=== PATIENT | male | born 1970 | race Caucasian/White ===

== ENCOUNTER 2018-05-28 05:57 | Emergency (ER) | payer OTHER ==
[~2018-05-28] VITALS: Ht 160 cm; Wt 54.9 kg
--- NOTE | 2018-05-28 06:10 | NUR ---
UPON TELLING PATIENT TO WAIT HE LOBBY HE EXPLAINS TO ME HE IS TIRED CAUSE HE HAS BEEN TRAVELING ALL NIGHT.
--- NOTE | 2018-05-28 07:11 | NUR ---
Per charge master coordinator Marci, call behavioral health and inform them this pt needs to be seen. Don't call telepsych.
[2018-05-28 07:15] LABS: CLARITY,URINE CLEAR (Clear); COLOR,URINE YELLOW (Yellow); GLUCOSE, URINE NEGATIVE (Neg); KETONES,URINE NEGATIVE (Neg); LEUKOCYTE ESTERASE ,URINE NEGATIVE (Neg); NITRITES, URINE NEGATIVE (Neg); OCCULT BLOOD,URINE NEGATIVE (Neg); PROTEIN,URINE NEGATIVE (Neg); UROBILINOGEN,URINE 0.2 E.U/dL (0.2-1.0)
[2018-05-28 07:16] LABS: UA COLLECTION TYPE CLN CATCH MIDSTREAM
--- NOTE | 2018-05-28 07:44 | NUR ---
PT's belongings were inventoried and documented. The 4 bags were placed in the the ambulance bay lockers and the belonging log was placed on PT's chart. The belonging log was reviewed by myself, the patient and Ana M MORGAN.
[2018-05-28 07:56] LABS: URINE AMPHETAMINE SCREEN POSITIVE (Neg); URINE BARBITUATE SCREEN NEGATIVE (Neg); URINE BENZODIAZEPINES SCREEN NEGATIVE (Neg); URINE CANNABINOID SCREEN POSITIVE (Neg); URINE COCAINE SCREEN NEGATIVE (Neg); URINE METHADONE SCREEN NEGATIVE (Neg); URINE OPIATE SCREEN NEGATIVE (Neg); URINE PHENCYCLIDINE SCREEN NEGATIVE (Neg)
[2018-05-28] MEDS ORDERED: ACET-2119 PO (08:03)
[2018-05-28] MEDS ORDERED: PANT40TA4 PO (08:03)
[2018-05-28] MEDS ORDERED: HYDR50TA65 PO (08:03)
[2018-05-28] MEDS ORDERED: VENL-190 PO (08:03)
[2018-05-28] MEDS ORDERED: PRAZ1CAP5 PO (08:03)
[2018-05-28] MEDS ORDERED: MIRT15TA PO (08:03)
[2018-05-28] MEDS ORDERED: PRAZ2CAP2 PO (08:03)
[2018-05-28] MEDS ORDERED: TRAZ-219 PO (08:03)
[2018-05-28] MEDS ORDERED: ACET500C5 PO (08:03)
[2018-05-28 08:09] LABS: BASOPHILS % (AUTO) 0.4 % (0-1); EOSINOPHILS % (AUTO) 0.5 % (0-6); HEMATOCRIT 41.2 % (42.0-52.0); HEMOGLOBIN 13.5 g/dl (14.0-17.9); LYMPHOCYTES # (AUTO) 1.4 X10'3 (1.1-4.8); LYMPHOCYTES % (AUTO) 15.1 % (21-51); MEAN CORPUSCULAR HEMOGLOBIN 27.3 PG (27.0-31.0); MEAN CORPUSCULAR HGB CONC 32.7 g/dL (33.0-36.5); MEAN CORPUSCULAR VOLUME 83.4 FL (78-98); MEAN PLATELET VOLUME 8.7 FL (7.4-10.4); MONOCYTES # (AUTO) 0.6 X10'3 (0-0.9); MONOCYTES % (AUTO) 6.9 % (2-12); NEUTROPHILS % (AUTO) 77.1 % (42-75); PLATELET COUNT 237 X10'3 (140-440); RED BLOOD COUNT 4.94 X10'6 (4.70-6.10); RED CELL DISTRIBUTION WIDTH 14.9 % (11.5-14.5)
[2018-05-28 08:21] LABS: ALANINE AMINOTRANSFERASE 26 U/L (12-78); ALBUMIN/GLOBULIN RATIO 1.1 (1.1-1.5); ALKALINE PHOSPHATASE 87 IU/L (46-116); ANION GAP 8 (8-16); ASPARTATE AMINO TRANSFERASE 21 U/L (10-37); BILIRUBIN,TOTAL 0.5 MG/DL (0.1-1.0); BLOOD UREA NITROGEN 9 MG/DL (7-18); BUN/CREATININE RATIO 11.7 (5.4-32.0); CALCIUM 9.2 MG/DL (8.5-10.1); CHLORIDE 103 MMOL/L (99-107); CREATININE 0.77 MG/DL (0.60-1.10); GLUCOSE 88 MG/DL (70-104); POTASSIUM 3.4 MMOL/L (3.5-5.1); SODIUM 140 MMOL/L (135-145); TOTAL CARBON DIOXIDE 29.1 MMOL/L (24-32); TOTAL PROTEIN 7.7 G/DL (6.4-8.2); eGFR > 90 ML/MIN
[2018-05-28 08:29] LABS: ETHANOL < 0.010 GM/DL (0.0-0.010)
--- NOTE | 2018-05-28 08:38 | NUR ---
Called behavioral health. Spoke with Justine and informed her that we have a pt that needs to be seen. She stated she will let MD know when they arrive.
--- NOTE | 2018-05-28 10:06 | NUR ---
Pt sitting up in bed. Calm and cooperative.
--- NOTE | 2018-05-28 10:49 | NUR ---
Report called to [facility]. Pt to overflow.
[2018-05-28] MEDS ORDERED: non-formulary drug (Hydroxyzine HCl 1 TAB) PO PRN (10:55)
--- NOTE | 2018-05-28 11:10 | NUR ---
RN spoke to patient at bedside. Patient states he is here because he is suicidal. Patient states he came from [place] on the bus and is heading to [place] where his brother lives. Patient states he only had enough money to get to [place]. Patient states he is having suicidal thoughts. RN asked patient about a plan and he says "well, I usually cut my self but I would probably jump of a bridge." Patient states he doesn't have any money for a bus ticket. RN asked if his brother could buy him a bus ticket to [place]. Patient states no, he doesn't have any money either. (Patient told [facility], that his brother doesn't know he's coming and doesn't have a number or address for him). Patient states he smokes 3 packs a day. No distress observed. Continue to monitor.
[2018-05-28] MEDS ORDERED: acetaminophen 325mg tablet PO SCH (12:00)
[2018-05-28] MEDS ORDERED: nicotine 21mg patch - 24 hr TD SCH (12:55)
[2018-05-28] MEDS ORDERED: NICOTINE POLACRILEX 4 MG LOZENGE BC PRN ×2 (12:55→13:15)
[2018-05-28] MEDS ORDERED: acetaminophen 325mg tablet PO PRN (13:00)
[2018-05-28] MEDS ORDERED: NICOTINE POLACRILEX 2 MG LOZENGE MM PRN (13:16)
--- NOTE | 2018-05-28 13:20 | NUR ---
Patient eating lunch. No distress observed. Continue to monitor.
[2018-05-28] MEDS: NICOTINE POLACRILEX 4 MG LOZENGE BC PRN (15:40)
--- NOTE | 2018-05-28 15:40 | NUR ---
Patient coloring to pass the time. No distress observed. Continue to monitor.
--- NOTE | 2018-05-28 17:30 | NUR ---
Patient in the BR cleaning up. Continue to monitor.
--- NOTE | 2018-05-28 19:38 | NUR ---
Patient ambulatory to BR, steady gait. Patient appears a little anxious. Continue to monitor.
[2018-05-28] MEDS ORDERED: quetiapine 100mg tablet PO PRN (19:45)
--- NOTE | 2018-05-28 20:30 | NUR ---
Patient wants meds later. Patient is slightly agitated. Continue to monitor.
[2018-05-28] MEDS: quetiapine 100mg tablet PO SCH (21:00)
[2018-05-28] MEDS: mirtazapine 15mg tablet PO SCH (21:00)
[2018-05-28] MEDS ORDERED: non-formulary drug (Trazodone HCl 1 TAB) PO SCH (21:00)
[2018-05-28] MEDS: traZODone 50mg tablet PO SCH (21:00)
[2018-05-28] MEDS ORDERED: non-formulary drug (Prazosin Hcl 2 MG) PO SCH (21:00)
[2018-05-28] MEDS: prazosin 1mg capsule PO SCH (23:04)
[2018-05-28] MEDS ORDERED: diphenhydrAMINE 50 mg/ml inj IM ONE (23:15)
[2018-05-28] MEDS ORDERED: LORazepam 2 mg/ml vial IM ONE (23:15)
[2018-05-28] MEDS ORDERED: ziprasidone IM 20mg inj **IM only IM ONE (23:15)
--- NOTE | 2018-05-28 23:41 | NUR ---
RN offered patient medication. Patient upset and says he can't take medication because he used meth this morning. RN explained to patient that the medications will help him sleep. Patient finally took Prazosin. Patient starts cussing and stating "this is bullshit! I'm leaving and I'm going to smoke a cigarette!" Patient pushes his bedside table away in anger. CATHY Negrete called for security to stand by while CATHY Bee spoke with Dr Barker to get medication for stand by in case patient escalates. Patient stands up and starts posturing and security held patient while RN gave him medication. Patient sitting at the edge of his bed. Continue to monitor.
[2018-05-29] MEDS: NICOTINE POLACRILEX 4 MG LOZENGE BC PRN ×4 (00:03→16:46)
--- NOTE | 2018-05-29 00:32 | NUR ---
Patient is laying on his left side in bed. Patient is not asleep as he is adjusting himself in bed. Continue to monitor.
--- NOTE | 2018-05-29 02:55 | NUR ---
Patient on right side. Patient had a couple of coughing episodes with clear sputum. RN examined pt's skin and breathing. No signs of allergic reaction observed. Patient's breathing is equal bilaterrally. No SOB observed. Continue to monitor.
--- NOTE | 2018-05-29 05:12 | NUR ---
Pt continues to sleep on right side. Patient still having a couple of coughing episodes. Restful for the last 30 minutes. Continue to monitor.
--- NOTE | 2018-05-29 06:42 | NUR ---
Patient sleeping supine with occasional cough, pt currently resting with respirations even and unlabored, no signs of distress. will continue to monitor.
--- NOTE | 2018-05-29 08:00 | NUR ---
Patient sleeping supine, mouth open and snoring, breathing and respirations are unlabored and even, will continue to monitor.
[2018-05-29] MEDS: venlafaxine XR 75mg capsule (Q24H) PO SCH (08:54)
[2018-05-29] MEDS: prazosin 1mg capsule PO SCH ×2 (08:54→21:00)
[2018-05-29] MEDS: pantoprazole 40mg Tablet.DR PO SCH (08:54)
--- NOTE | 2018-05-29 09:01 | NUR ---
Patient awake, eating breakfast, asks for warm blanket. no signs of distress at this time.
--- NOTE | 2018-05-29 09:20 | NUR ---
Patient requesting nicotine lozenge, given now pt resting on left side, no distress. pt calm, cooperative. will continue to monitor.
--- NOTE | 2018-05-29 10:46 | NUR ---
Patient lying on left side, sleeping, respirations unlabored, no distress at this time.
--- NOTE | 2018-05-29 13:15 | NUR ---
Patient awake, asking for new scrub top, states "why did no one wake me up for lunch?"
--- NOTE | 2018-05-29 13:36 | NUR ---
Patient increasingly agitated, states "I want to talk to my assistant spa manager about whatever doctor gave me that shot last night." security called, security staff at bedside. Patient de-escalating and eating lunch calmly, will continue to monitor.
--- NOTE | 2018-05-29 15:00 | NUR ---
Patient sleeping on left side, respirations even and unlabored.
[2018-05-29] MEDS: hydrOXYzine 25 MG tablet PO PRN (15:54)
--- NOTE | 2018-05-29 16:06 | NUR ---
Patient up to brush his teeth, ambulated back to bed, pt appears to be calm at this time.
--- NOTE | 2018-05-29 16:41 | NUR ---
Patient asking why he is being held here if he came voluntarily; explained to patient how patients are put on 5150 and educated him that here he is held due to being danger to self. patient states "I cant smoke or smoke my weed here."
--- NOTE | 2018-05-29 17:25 | NUR ---
Patient requesting nicotine lozenges every hour. Per MD, nicotine lozenges kept at every 3 hour frequency. Patient states, "I normally smoke 3 packs per day. I want to speak to whatever doctor is in charge right now."
[2018-05-29] MEDS ORDERED: diphenhydrAMINE 50 mg/ml inj IM ONE ×2 (17:35→17:40)
[2018-05-29] MEDS ORDERED: haloperidol lactate 5mg/ml inj IM ONE (17:35)
[2018-05-29] MEDS ORDERED: LORazepam 2 mg/ml vial IM ONE ×2 (17:35→17:40)
[2018-05-29] MEDS ORDERED: LORazepam 2 mg/ml vial ONE (17:38)
[2018-05-29] MEDS ORDERED: diphenhydrAMINE 50 mg/ml inj ONE (17:38)
[2018-05-29] MEDS ORDERED: ziprasidone IM 20mg inj **IM only IM ONE (17:40)
--- NOTE | 2018-05-29 17:44 | NUR ---
Patient got up, walked straight through exit door before staff could get to patient, security staff notified right away and caught patient and brought back to patient's bed. Orders received from MD to give Stephanie, Rayshawn and ativan. patient in bed with security staff at bedside.
--- NOTE | 2018-05-29 17:45 | NUR ---
Communicated with patient earlier in day for pt to remain calm, cooperative and for him to stay in boundaries of the unit-pt stated earlier he was angry at the doctor for giving meds last night when first waking up this am. Attempted to redirect patient when patient attempted to leave unit and run out the door- patient proceeded to run despite attempts to stop him and redirect.
--- NOTE | 2018-05-29 17:55 | NUR ---
PT LEFT THE ED OF UNIT, SECURITY WAS CALLED TO ESCORT PT BACK TO BED. STAFF AND SECURITY ATTEMPTED TO VERBALY REDIRECT PT HOWEVER THE PT CONTINUED TO RESIST AND WOULD NOT COMPLY WITH VERBAL REDIRECTION. PT WAS THEN PHYSICALLY ESCORTED BACK TO BED WHERE HE CONTINUED TO RESIST. WAS NOTIFIED OF SITUATION AND NEW MEDICATIONS WERE ORDERED AND ADMINISTERED. 2MG ATIVAN IM, 50MG BENEDRYL IM, 20MG GEODON IM.
--- NOTE | 2018-05-29 17:59 | NUR ---
Medication given and patient remains in his bed at this time. will continue to closely monitor.
--- NOTE | 2018-05-29 18:50 | NUR ---
Pt asked for a nicotine lozenge and was told the next adminsitration was in one hour. Pt asked for the doctor to reassess the timing of the adminsitration. Pt then turned over in bed an went to sleep.
--- NOTE | 2018-05-29 20:50 | NUR ---
Pt sleeping quietly in his bed. Respirations even and unlabored. No distress noted
[2018-05-29] MEDS: mirtazapine 15mg tablet PO SCH (21:00)
[2018-05-29] MEDS: quetiapine 100mg tablet PO SCH (21:00)
[2018-05-29] MEDS: traZODone 50mg tablet PO SCH (21:00)
--- NOTE | 2018-05-29 22:00 | NUR ---
Pt sleeping quietly in his bed. Respirations even and unlabored. No distress noted. Elopement band still in place on his left wrist.
--- NOTE | 2018-05-30 00:15 | NUR ---
Pt sleeping quietly in his bed. Snoring but respirations even and unlabored. No distress noted.
--- NOTE | 2018-05-30 03:15 | NUR ---
[facility] called to obtain more information on pt. Labs, and medical release faxed to Jet MORGAN at [facility]. Pt sleeping quietly in his bed. Respirations even and unlabored. No distress noted
--- NOTE | 2018-05-30 03:22 | NUR ---
Labs, 5150 and med clearance sent to [facility], [place] as per requiest. Called [facility], spoke to Harrison to confirm receipt of fax.
--- NOTE | 2018-05-30 04:02 | NUR ---
Nurse to nurse Jet RN with [facility].
[2018-05-30] MEDS: NICOTINE POLACRILEX 4 MG LOZENGE BC PRN ×4 (05:35→18:48)
[2018-05-30] MEDS: venlafaxine XR 75mg capsule (Q24H) PO SCH (08:24)
[2018-05-30] MEDS: pantoprazole 40mg Tablet.DR PO SCH (08:24)
[2018-05-30] MEDS: prazosin 1mg capsule PO SCH (08:28)
[2018-05-30] MEDS: hydrOXYzine 25 MG tablet PO PRN (12:29)
[2018-05-30] MEDS ORDERED: LORazepam 2 mg/ml vial IM ONE (14:15)
[2018-05-30] MEDS ORDERED: diphenhydrAMINE 50 mg/ml inj IM ONE (14:15)
[2018-05-30] MEDS ORDERED: haloperidol lactate 5mg/ml inj IM ONE (14:15)
[2018-05-30] MEDS ORDERED: LORazepam 1 MG tablet PO ONE (14:35)
--- NOTE | 2018-05-30 18:20 | NUR ---
Pt moderately agitated and asking for Nicotine lozenges. When told by this RN it would be provided upon completion of shift change/report receipt, pt became verbally abuse saying, "I want it now. this is bullshit. you can't treat me like this... ignoring me and shit." Restated meds would be provided shortly, requesting pt to return to be as his physical behavior was beginning to be defensive posturing. Pt return to his bed with moderate effort to deescalate his behavior. Pt's interaction had negative impact on other pt's in immediate proximity to him requiring effort to calm them also.
--- NOTE | 2018-05-30 18:49 | NUR ---
Pt refused to answer assessment questions r/t to his prior S/I statement saying, "I'm just want to get on a bus and go." Attempted to discussed what constitutes appropriate and safe behavior with pt while administering his medications. Pt unable/unwilling to hear what is being said. He is highly argumentative, regardless of what topic is being discussed. When asked about his contrary responses, pt states, "I just want what I want. This isn't shelter, you know. I have rights. You work for me." Will continue to monitor pt's agitation level.
[2018-05-30] MEDS ORDERED: prazosin 1mg capsule PO SCH (21:00)
--- NOTE | 2018-05-30 21:12 | NUR ---
Pt refusing to take scheduled meds saying "I don't take those until 1030." When explained they are scheduled for administration @ 2100, pt stated, ""Nope I refuse to take them." It is unclear if pt's refusal is an attempt to assert himself. Will attempt to administer at 2200.
--- NOTE | 2018-05-30 21:18 | NUR ---
Discussed pt's increased agitation with Dr Lepe; new orders for Geodon 20mg IM Q4PRN received.
[2018-05-30] MEDS ORDERED: ziprasidone IM 20mg inj **IM only IM PRN (21:20)
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
[2018-05-30] MEDS: mirtazapine 15mg tablet PO SCH (22:09)
[2018-05-30] MEDS: traZODone 50mg tablet PO SCH (22:09)
[2018-05-30] MEDS: quetiapine 100mg tablet PO SCH (22:10)
--- NOTE | 2018-05-30 23:18 | NUR ---
Pt resting quietly on right side. RR 15, even and unlabored. No apparent distress at this time.
--- NOTE | 2018-05-31 00:44 | NUR ---
Pt asleep on back. RR 13, even and unlabored. Mild nightmares and restless sleep noted.
--- NOTE | 2018-05-31 02:12 | NUR ---
Pt asleep on back. RR 13, even and unlabored. No apparent distress @ this time.
[2018-05-31] MEDS: NICOTINE POLACRILEX 4 MG LOZENGE BC PRN ×2 (03:30→06:13)
[2018-05-31 05:30] VITALS: BP 144/89
[2018-05-31] MEDS ORDERED: venlafaxine XR 75mg capsule (Q24H) PO SCH (08:00)
--- NOTE | 2018-05-31 08:20 | NUR ---
Pt awake to eat breakfast; calm so far this morning
[2018-05-31] MEDS: pantoprazole 40mg Tablet.DR PO SCH (08:32)
[2018-05-31] MEDS: prazosin 1mg capsule PO SCH (08:32)
--- NOTE | 2018-05-31 10:59 | NUR ---
Patient left to [facility] with rolloff driver; dressed in pants and shirt. Home meds retrieved from pharmacy and returned to rolloff driver. Patient signed for his returned meds. Has his wallet and phone in his bag that is with rolloff driver. Angry at time of discharge. Security at bedside for staff safety.
== END 2018-05-31 10:30 ==
LOC: ER 05:58
DX: F32.9 Major depressive disorder, single episode, unspecified (principal); F41.0 Panic disorder [episodic paroxysmal anxiety]; F15.10 Other stimulant abuse, uncomplicated; F12.90 Cannabis use, unspecified, uncomplicated; F17.200 Nicotine dependence, unspecified, uncomplicated; Z79.899 Other long term (current) drug therapy; Z88.8 Allergy status to other drugs, medicaments and biological substances; Z59.0 Homelessness; Z56.0 Unemployment, unspecified
CPT/HCPCS: 36415; 80053; 80305; 80320; 81003; 84443; 85025; 96372; 99285; J1200; J2060; J3486; Q0177